=== PATIENT | male | born 1945 | race Caucasian/White ===

== ENCOUNTER 2023-05-11 07:39 | Day surgery (SDC) | payer OTHER, BC ==
[~2023-05-11] VITALS: Ht 180.3 cm; Wt 93.0 kg
[2023-05-11] MEDS ORDERED: CEFAZOLIN SOD 2 GM in D5W 50 ML IV ONE (09:00)
[2023-05-11] MEDS ORDERED: fentaNYL CITRATE/PF 100 MCG/2 ML AMP ONE (09:04)
[2023-05-11] MEDS ORDERED: ACETAMINOPHEN I.V. 1000 MG 100 ML IV ONE (09:04)
[2023-05-11] MEDS ORDERED: MIDAZOLAM HCL 2 MG/2 ML VIAL (VERSED) ONE (09:04)
[2023-05-11] MEDS ORDERED: ROCURONIUM BROMIDE 10 MG/ML (ZEMURON) ONE (10:21)
[2023-05-11] MEDS ORDERED: GLYCOPYRROLATE 0.2 MG/ML VIAL ONE (10:21)
[2023-05-11] MEDS ORDERED: SEVOFLURANE 15 MIN GAS INH ONE (10:21)
[2023-05-11] MEDS ORDERED: ONDANSETRON HCL 4 MG/2 ML VIAL ONE (10:21)
[2023-05-11] MEDS ORDERED: PROPOFOL 200MG/ 20ML VIAL (DIPRIVAN) IV ONE (10:21)
[2023-05-11 10:25] VITALS: O2SAT 99
[2023-05-11] MEDS ORDERED: ONDANSETRON HCL 4 MG/2 ML VIAL IVP PRN (11:30)
[2023-05-11] MEDS ORDERED: fentaNYL CITRATE/PF 100 MCG/2 ML AMP IVP PRN ×2 (11:30)
[2023-05-11] MEDS ORDERED: HYDROmorphone 1 MG/ML INJ. CARTRIDGE IVP PRN (11:30)
[2023-05-11] MEDS ORDERED: LR 1,000 ML IV ONE (11:30)
[2023-05-11] MEDS ORDERED: D5/0.45 NS 1,000 ML IV SCH (12:00)
[2023-05-11] MEDS ORDERED: HYDROcodone/ACETAMIN 5-325 MG TAB (NORCO/ VICODIN) PO PRN ×2 (12:00)
[2023-05-11] MEDS: HYDROmorphone 1 MG/ML INJ. CARTRIDGE ONE (12:48)
[2023-05-11] MEDS: fentaNYL CITRATE/PF 100 MCG/2 ML AMP ONE (13:50)
[2023-05-11 17:33] VITALS: BP_SYST 121; PULSE 65; RESP 17
== END 2023-05-11 16:24 | disposition home or self-care (01) ==
LOC: SDS 07:39 → SMU 07:40 → SDS 16:24
PROVIDERS: ATTEND Colon & Rectal Surgery
DX: K80.10 Calculus of gallbladder with chronic cholecystitis without obstruction (principal); I10 Essential (primary) hypertension; K21.9 Gastro-esophageal reflux disease without esophagitis; E66.3 Overweight; Z68.28 Body mass index [BMI] 28.0-28.9, adult; Z88.6 Allergy status to analgesic agent; Z88.1 Allergy status to other antibiotic agents; Z87.891 Personal history of nicotine dependence; Z98.890 Other specified postprocedural states; Z79.899 Other long term (current) drug therapy
CPT/HCPCS: 87081; 47563; 88304; J0690; J3490; J3465; J2405; J2704; J3010; J1170; Q9967; J7060; C1727; J0131; 76000